=== PATIENT | female | born 1950 | race Caucasian/White ===

== ENCOUNTER 2016-12-20 10:58 | Inpatient (IN) | payer MEDICARE, OTHER ==
[~2016-12-20] VITALS: Ht 160 cm; Wt 78.5 kg
[~2016-12-20 10:58] MED LIST: ALBUTEROL2.5 MG/3 M INH; ASPIRIN EC81 MG PO; AYR NASAL SPRAY50 ML; BACTROBAN OINT22 GM TOP; BENTYL10 MG PO; CARDIZEM 60MG T60 MG PO; CARDIZEM60 MG PO; DALIRESP500 MCG PO; ISORDIL TAB 3030 MG PO; KLONOPIN TAB 00.5 MG PO; LEVAQUIN500 MG PO; LIPITOR TAB 2020 MG PO; LOPRESSOR 25 MG25 MG PO; MEDROL4 MG PO; NORCO 7.5-3251 EACH PO; PREDNISONE 10 M10 MG PO; PROZAC40 MG PO; SINGULAIR10 MG PO; SPIRIVA HANDIH18 MCG INH; SYMBICORT 80-10.2 GM INH; THEO-DUR 200 M200 MG PO; VENTOLIN HFA 66.7 GM INH; XARELTO15 MG PO
[2016-12-20 11:37] LABS: HEMOGLOBIN 11.4 gm/dl (12.3-15.3); RED BLOOD COUNT 4.11 M/UL (4.00-5.10); WHITE BLOOD COUNT 10.2 K/UL (4.5-11.0)
[2016-12-20 12:09] LABS: BUN/CREATININE RATIO 18 (0-10)
[2016-12-21 05:56] LABS: HEMOGLOBIN 10.8 gm/dl (12.3-15.3); RED BLOOD COUNT 3.84 M/UL (4.00-5.10)
[2016-12-21 05:57] LABS: WHITE BLOOD COUNT 6.4 K/UL (4.5-11.0)
[2016-12-21 06:21] LABS: BUN/CREATININE RATIO 24 (0-10)
[2016-12-21] MEDS ORDERED: IPRAT-ALBUT 0.5-3 ML INH (13:17)
[2016-12-24 05:29] LABS: HEMOGLOBIN 11.9 gm/dl (12.3-15.3)
[2016-12-24 05:31] LABS: RED BLOOD COUNT 4.25 M/UL (4.00-5.10); WHITE BLOOD COUNT 11.7 K/UL (4.5-11.0)
[2016-12-24 05:46] LABS: BUN/CREATININE RATIO 42 (0-10)
[2016-12-26 06:28] LABS: HEMOGLOBIN 11.4 gm/dl (12.3-15.3); RED BLOOD COUNT 4.13 M/UL (4.00-5.10); WHITE BLOOD COUNT 10.9 K/UL (4.5-11.0)
[2016-12-26 06:45] LABS: BUN/CREATININE RATIO 63 (0-10)
[2016-12-27 05:41] LABS: HEMOGLOBIN 11.1 gm/dl (12.3-15.3); RED BLOOD COUNT 4.02 M/UL (4.00-5.10); WHITE BLOOD COUNT 10.9 K/UL (4.5-11.0)
[2016-12-27 05:56] LABS: BUN/CREATININE RATIO 60 (0-10)
[2016-12-29 06:20] LABS: HEMOGLOBIN 11.4 gm/dl (12.3-15.3); RED BLOOD COUNT 4.13 M/UL (4.00-5.10); WHITE BLOOD COUNT 11.1 K/UL (4.5-11.0)
[2016-12-29 06:45] LABS: BUN/CREATININE RATIO 50 (0-10)
[2016-12-30 05:00] LABS: BUN/CREATININE RATIO 53 (0-10)
[2016-12-30] MEDS ORDERED: CARDIZEM 60MG T60 MG PO (17:36)
[2016-12-30] MEDS ORDERED: PROTONIX40 MG PO (17:37)
[2016-12-30] MEDS ORDERED: MEDROL DOSEPAK 24 MG PO (17:37)
[2016-12-30] MEDS ORDERED: CATAPRES 0.1MG0.1 MG PO (17:38)
[2016-12-30] MEDS ORDERED: KLONOPIN TAB 00.5 MG PO (17:38)
[2016-12-30] MEDS ORDERED: IMODIUM CAP 2 MG2 MG PO (18:28)
[2016-12-30] MEDS ORDERED: IMDUR ER TAB 3030 MG PO (18:38)
[2017-04-04] MEDS ORDERED: LASIX20 MG PO (03:42)
[2017-04-04] MEDS ORDERED: LISINOPRIL20 MG PO (03:45)
[2017-04-09] MEDS ORDERED: MEDROL DOSEPAK 24 MG PO (18:11)
[2017-04-20] MEDS ORDERED: SENOKOT-S TABL1 EACH PO (11:10)
[2017-04-20] MEDS ORDERED: CEFUROXIME500 MG PO (11:38)
== END 2016-12-30 20:00 | disposition home or self-care (01) | DRG 189 ==
LOC: ER1 10:58 → M/S 14:15 → ZEROF 14:15 → M/S 14:15
PROVIDERS: Emergency Medicine; Hospitalist; Internal Medicine Pulmonary Disease; ADMIT Internal Medicine
PROC: 5A09357 Assistance with Respiratory Ventilation, Less than 24 Consecutive Hours, Continuous Positive Airway Pressure (ICD-10-PCS; principal; 2016-12-27)
DX: J96.22 Acute and chronic respiratory failure with hypercapnia (principal); G93.41 Metabolic encephalopathy; J44.0 Chronic obstructive pulmonary disease with (acute) lower respiratory infection; I50.30 Unspecified diastolic (congestive) heart failure; K52.1 Toxic gastroenteritis and colitis; J44.1 Chronic obstructive pulmonary disease with (acute) exacerbation; J96.21 Acute and chronic respiratory failure with hypoxia; J20.9 Acute bronchitis, unspecified; I11.0 Hypertensive heart disease with heart failure; I25.10 Atherosclerotic heart disease of native coronary artery without angina pectoris; I48.0 Paroxysmal atrial fibrillation; E78.5 Hyperlipidemia, unspecified; D64.9 Anemia, unspecified; T36.3X5A Adverse effect of macrolides, initial encounter; K21.9 Gastro-esophageal reflux disease without esophagitis; G89.29 Other chronic pain; E66.9 Obesity, unspecified; F41.9 Anxiety disorder, unspecified; Z95.5 Presence of coronary angioplasty implant and graft; Z87.891 Personal history of nicotine dependence; Z77.22 Contact with and (suspected) exposure to environmental tobacco smoke (acute) (chronic); Z91.19 Patient's noncompliance with other medical treatment and regimen; Z68.30 Body mass index [BMI] 30.0-30.9, adult; Z79.01 Long term (current) use of anticoagulants; Z79.82 Long term (current) use of aspirin; Z99.81 Dependence on supplemental oxygen; Z79.52 Long term (current) use of systemic steroids; Z79.51 Long term (current) use of inhaled steroids; Z79.891 Long term (current) use of opiate analgesic; Z79.899 Other long term (current) drug therapy; Z90.49 Acquired absence of other specified parts of digestive tract; Z98.890 Other specified postprocedural states; Z82.49 Family history of ischemic heart disease and other diseases of the circulatory system
CPT/HCPCS: 36415; 36600; 71010; 71020; 80048; 80053; 81001; 82550; 82553; 82803; 83605; 83735; 83874; 83880; 84100; 84484; 85025; 85027; 87040; 87045; 87046; 89055; 93005; 94640; 94660; 94664; 96374; 96375; 97110; 97530; 99285; G0378; J0360; J0696; J2270; J2920; J2930; J7050; J7509

== ENCOUNTER → 2017-01-13 | Outpatient (CLI) | payer MEDICARE, OTHER ==
[~2017-01-13] MED LIST changes: +CATAPRES 0.1MG0.1 MG PO; +CEFUROXIME500 MG PO; +IMDUR ER TAB 3030 MG PO; +IMODIUM CAP 2 MG2 MG PO; +IPRAT-ALBUT 0.5-3 ML INH; +LASIX20 MG PO; +LISINOPRIL20 MG PO; +MEDROL DOSEPAK 24 MG PO; +PROTONIX40 MG PO; +SENOKOT-S TABL1 EACH PO
== END ==
LOC: HEART 5 14:16
DX: J44.9 Chronic obstructive pulmonary disease, unspecified (principal)
CPT/HCPCS: 94010

== ENCOUNTER → 2017-02-08 | Outpatient (CLI) | payer MEDICARE, OTHER | LOC: KOH-I 08:30 | DX: R07.81 Pleurodynia (principal); M25.522 Pain in left elbow; M19.022 Primary osteoarthritis, left elbow | CPT/HCPCS: 71020; 73200 ==

== ENCOUNTER 2020-12-16 04:28 | Inpatient (IN) | payer MEDICARE, OTHER ==
[~2020-12-16] VITALS: Ht 157.5 cm; Wt 83.9 kg
[~2020-12-16 04:28] MED LIST changes: +CEFUROXIME250 MG PO; +HYDRALAZINE HCL25 MG PO; -IPRAT-ALBUT 0.5-3 ML INH; +K-DUR TAB 10 M10 MEQ PO; +KEFLEX CAP 250250 MG PO; -LOPRESSOR 25 MG25 MG PO; +LORTAB 5-325 M1 EACH PO; +NITROGLYCERIN0.4 MG SL; +NORCO 5-325 TA1 EACH PO; +OMNICEF 300 MG300 MG PO; +PREDNISONE 50 M50 MG PO; +PREDNISONE10 MG PO; +TIKOSYN125 MCG PO; +ZITHROMAX500 MG PO
[2020-12-16 06:00] LABS: BUN/CREATININE RATIO 20 (0-10)
[2020-12-16 06:11] LABS: HEMOGLOBIN 11.2 gm/dl (12.3-15.3); RED BLOOD COUNT 4.02 M/UL (4.00-5.10); WHITE BLOOD COUNT 15.8 K/UL (4.5-11.0)
[2020-12-16] MEDS ORDERED: MEDROL DOSEPAK 24 MG PO (06:28)
[2020-12-16] MEDS ORDERED: VIBRAMYCIN100 MG PO (06:28)
[2020-12-16] MEDS ORDERED: HYDROCODON-ACE1 EAC2 PO (09:40)
[2020-12-16] MEDS ORDERED: DAILY VALUE1 EACH PO (09:41)
[2020-12-16] MEDS ORDERED: ASPIRIN EC81 MG PO (09:41)
[2020-12-16] MEDS ORDERED: PULMICORT1 MG/2 ML INH (09:43)
[2020-12-16] MEDS ORDERED: SYMBICORT 80-10.2 GM INH (09:46)
[2020-12-16] MEDS ORDERED: VENTOLIN HFA 66.7 GM INH (09:48)
[2020-12-16] MEDS ORDERED: MUCUS RELIEF400 MG PO (09:48)
[2020-12-16] MEDS ORDERED: BENTYL 10MG CAP10 MG PO (09:52)
[2020-12-16] MEDS ORDERED: IBUPROFEN400 MG PO (09:53)
[2020-12-16] MEDS ORDERED: IPRAT-ALBUT 0.5-3 ML INH (13:17)
[2020-12-16] MEDS ORDERED: KLONOPIN TAB 00.5 MG PO (16:08)
[2020-12-17 06:35] LABS: HEMOGLOBIN 11.6 gm/dl (12.3-15.3); RED BLOOD COUNT 4.19 M/UL (4.00-5.10); WHITE BLOOD COUNT 16.2 K/UL (4.5-11.0)
[2020-12-17 06:45] LABS: BUN/CREATININE RATIO 28 (0-10)
[2020-12-18 05:56] LABS: HEMOGLOBIN 11.3 gm/dl (12.3-15.3); RED BLOOD COUNT 4.07 M/UL (4.00-5.10); WHITE BLOOD COUNT 18.8 K/UL (4.5-11.0)
[2020-12-18 06:29] LABS: BUN/CREATININE RATIO 34 (0-10)
[2020-12-18] MEDS ORDERED: OMNICEF 300 MG300 MG PO (11:26)
[2020-12-18] MEDS ORDERED: MEDROL DOSEPAK 24 MG PO (11:26)
[2020-12-19] MEDS ORDERED: AMOX TR-K CLV1 EAC4 PO (20:01)
[2020-12-20] MEDS ORDERED: LEVOFLOXACIN750 MG PO (16:03)
[2020-12-20] MEDS ORDERED: OMNICEF 300 MG300 MG PO (16:09)
== END 2020-12-20 16:59 | disposition home or self-care (01) | DRG 190 ==
LOC: ER1 04:28 → M/S 08:27 → CDU 08:27 → M/S 08:27 → CDU 08:27 → M/S 19:07
PROVIDERS: Emergency Medicine; Physician Assistant; Physician Assistant Medical; ADMIT Internal Medicine
DX: J44.1 Chronic obstructive pulmonary disease with (acute) exacerbation (principal); J18.9 Pneumonia, unspecified organism; J96.11 Chronic respiratory failure with hypoxia; J98.11 Atelectasis; J96.12 Chronic respiratory failure with hypercapnia; I50.32 Chronic diastolic (congestive) heart failure; J44.0 Chronic obstructive pulmonary disease with (acute) lower respiratory infection; F41.9 Anxiety disorder, unspecified; I11.0 Hypertensive heart disease with heart failure; J44.9 Chronic obstructive pulmonary disease, unspecified; D72.829 Elevated white blood cell count, unspecified; Z20.822 Contact with and (suspected) exposure to COVID-19; R50.9 Fever, unspecified; R00.0 Tachycardia, unspecified; R73.9 Hyperglycemia, unspecified; I25.10 Atherosclerotic heart disease of native coronary artery without angina pectoris; I48.0 Paroxysmal atrial fibrillation; E78.5 Hyperlipidemia, unspecified; I27.20 Pulmonary hypertension, unspecified; Z87.891 Personal history of nicotine dependence; Z79.899 Other long term (current) drug therapy; Z79.01 Long term (current) use of anticoagulants; Z98.61 Coronary angioplasty status; Z79.82 Long term (current) use of aspirin; Z99.81 Dependence on supplemental oxygen
CPT/HCPCS: 0240U; 36415; 36600; 71045; 71046; 80048; 80053; 81001; 82550; 82553; 82803; 83605; 83690; 83735; 83880; 84484; 85025; 85027; 85379; 85610; 85730; 87040; 87086; 93005; 94640; 94660; 94664; 94760; 96374; 96375; 96376; 99285; G0378; J0696; J1940; J2405; J2550; J2930

== ENCOUNTER 2021-01-02 08:43 | Inpatient (IN) | payer OTHER ==
[~2021-01-02] VITALS: Ht 160 cm; Wt 84.8 kg
[~2021-01-02 08:43] MED LIST changes: +AMOX TR-K CLV1 EAC4 PO; +BENTYL 10MG CAP10 MG PO; +DAILY VALUE1 EACH PO; +HYDROCODON-ACE1 EAC2 PO; +IBUPROFEN400 MG PO; +IPRAT-ALBUT 0.5-3 ML INH; +LEVOFLOXACIN750 MG PO; +MUCUS RELIEF400 MG PO; +PULMICORT1 MG/2 ML INH; +VIBRAMYCIN100 MG PO
[2021-01-02] MEDS ORDERED: LOPRESSOR 50 MG50 MG PO (10:24)
[2021-01-02] MEDS ORDERED: SPIRIVA RESPIMAT4 GM INH (10:29)
[2021-01-02 12:22] LABS: HEMOGLOBIN 10.4 gm/dl (12.3-15.3); RED BLOOD COUNT 3.82 M/UL (4.00-5.10); WHITE BLOOD COUNT 9.2 K/UL (4.5-11.0)
[2021-01-02 12:55] LABS: BUN/CREATININE RATIO 14 (0-10)
[2021-01-02] MEDS ORDERED: XIIDRA 5% EYEBOTH (17:44)
[2021-01-02] MEDS ORDERED: TIKOSYN125 MCG PO (17:53)
[2021-01-03 03:48] LABS: HEMOGLOBIN 10.7 gm/dl (12.3-15.3); RED BLOOD COUNT 3.92 M/UL (4.00-5.10)
[2021-01-03 03:54] LABS: WHITE BLOOD COUNT 6.7 K/UL (4.5-11.0)
[2021-01-03 04:20] LABS: BUN/CREATININE RATIO 21 (0-10)
[2021-01-04 04:48] LABS: HEMOGLOBIN 10.3 gm/dl (12.3-15.3); RED BLOOD COUNT 3.76 M/UL (4.00-5.10)
[2021-01-04 05:26] LABS: BUN/CREATININE RATIO 24 (0-10)
[2021-01-05 02:49] LABS: HEMOGLOBIN 9.9 gm/dl (12.3-15.3); RED BLOOD COUNT 3.68 M/UL (4.00-5.10); WHITE BLOOD COUNT 12.3 K/UL (4.5-11.0)
[2021-01-05 03:35] LABS: BUN/CREATININE RATIO 24 (0-10)
[2021-01-06 03:30] LABS: HEMOGLOBIN 10.9 gm/dl (12.3-15.3); RED BLOOD COUNT 3.97 M/UL (4.00-5.10)
[2021-01-06 03:49] LABS: BUN/CREATININE RATIO 32 (0-10)
[2021-01-06] MEDS ORDERED: MEDROL DOSEPAK 24 MG PO (11:11)
[2021-01-06] MEDS ORDERED: DOXYCYCLINE HY100 MG PO (11:11)
[2021-01-06] MEDS ORDERED: AMLODIPINE BESYL5 MG PO (11:11)
[2021-01-07 05:19] LABS: BUN/CREATININE RATIO 26 (0-10)
[2021-01-07] MEDS ORDERED: PROTONIX 40 MG40 M1 PO (08:42)
[2021-01-07] MEDS ORDERED: DIAMOX 250 MG250 MG PO (08:50)
--- NOTE | 2021-01-07 10:03 | NUR ---
INSTRUCTED PATIENT ON STOPPING PULMICORT, NEW MED SCRIPTS GIVEN, FOLLOW UP APPOINTMENT SCHEDULED. PATIENT HAS HOSPICE IN [place]. NURSE MADE AWARE. LARS BYRD R.N.
--- NOTE | 2021-01-07 11:14 | NUR ---
notified [facility]. report given to Philip
== END 2021-01-07 13:18 | disposition home or self-care (01) | DRG 178 ==
LOC: ER1 08:43 → CDU 16:20 → M/S 16:20
PROVIDERS: Emergency Medicine; Internal Medicine; Physician Assistant; ADMIT Internal Medicine
DX: J15.6 Pneumonia due to other Gram-negative bacteria (principal); J44.1 Chronic obstructive pulmonary disease with (acute) exacerbation; J96.11 Chronic respiratory failure with hypoxia; I50.32 Chronic diastolic (congestive) heart failure; J96.12 Chronic respiratory failure with hypercapnia; E87.3 Alkalosis; J44.0 Chronic obstructive pulmonary disease with (acute) lower respiratory infection; J15.212 Pneumonia due to Methicillin resistant Staphylococcus aureus; I25.10 Atherosclerotic heart disease of native coronary artery without angina pectoris; E66.01 Morbid (severe) obesity due to excess calories; E78.5 Hyperlipidemia, unspecified; I27.20 Pulmonary hypertension, unspecified; I48.0 Paroxysmal atrial fibrillation; I11.0 Hypertensive heart disease with heart failure; Z20.822 Contact with and (suspected) exposure to COVID-19; R19.7 Diarrhea, unspecified; Z87.891 Personal history of nicotine dependence; Z82.49 Family history of ischemic heart disease and other diseases of the circulatory system; Z90.49 Acquired absence of other specified parts of digestive tract; Z98.890 Other specified postprocedural states; Z68.33 Body mass index [BMI] 33.0-33.9, adult; I25.2 Old myocardial infarction; Z95.5 Presence of coronary angioplasty implant and graft
CPT/HCPCS: 0240U; 36415; 36600; 71045; 71046; 80048; 80053; 80202; 82550; 82553; 82803; 83036; 83605; 83874; 83880; 84484; 85025; 86140; 87040; 93005; 94640; 94664; 94760; 96365; 96366; 96375; 97116-GP-CQ; 97161; 97530-GP-CQ; 99285; J0360; J0692; J2920; J2930; J3370; J7030; J7070

== ENCOUNTER 2021-07-07 19:36 | Inpatient (IN) | payer MEDICARE, OTHER ==
[~2021-07-07] VITALS: Ht 160 cm; Wt 71.7 kg
[~2021-07-07 19:36] MED LIST changes: +AMLODIPINE BESYL5 MG PO; +DIAMOX 250 MG250 MG PO; +DOXYCYCLINE HY100 MG PO; +LOPRESSOR 50 MG50 MG PO; +PROTONIX 40 MG40 M1 PO; +SPIRIVA RESPIMAT4 GM INH; +XIIDRA 5% EYEBOTH
[2021-07-07 20:09] LABS: RED BLOOD COUNT 4.37 M/UL (4.00-5.10); WHITE BLOOD COUNT 18.4 K/UL (4.5-11.0)
[2021-07-07 20:38] LABS: BUN/CREATININE RATIO 16 (0-10)
[2021-07-08] MEDS ORDERED: TIKOSYN125 MCG PO (00:38)
[2021-07-08] MEDS ORDERED: FLONASE 0.05% N16 GM (00:39)
[2021-07-08] MEDS ORDERED: HYDROCODON-ACE1 EAC2 PO (00:39)
[2021-07-08] MEDS ORDERED: SPIRIVA RESPIMAT4 GM INH (00:42)
[2021-07-08] MEDS ORDERED: ALBUTEROL2.5 MG/3 M INH (00:44)
[2021-07-08] MEDS ORDERED: FLUOXETINE HCL40 MG PO (00:46)
[2021-07-08] MEDS ORDERED: AMLODIPINE BES2.5 MG PO (00:47)
[2021-07-08] MEDS ORDERED: ISOSORBIDE MONO30 MG PO (00:47)
[2021-07-08] MEDS ORDERED: NYSTOP60 GM TP (00:48)
[2021-07-08] MEDS ORDERED: PEPTO-BISM262 MG/15 PO (00:50)
[2021-07-08 06:54] LABS: BUN/CREATININE RATIO 23 (0-10)
--- NOTE | 2021-07-09 08:26 | NUR ---
patient using external catheter.
[2021-07-10 08:06] LABS: BUN/CREATININE RATIO 15 (0-10)
--- NOTE | 2021-07-10 10:42 | NUR ---
DR. NINA AWARE OF PATIENT PASSING LARGE AMOUNTS OF BLOOD FROM RECTUM.
[2021-07-12 08:04] LABS: BUN/CREATININE RATIO 27 (0-10)
[2021-07-13 06:10] LABS: HEMOGLOBIN 11.3 gm/dl (12.3-15.3); RED BLOOD COUNT 4.25 M/UL (4.00-5.10)
[2021-07-13 06:29] LABS: BUN/CREATININE RATIO 24 (0-10)
--- NOTE | 2021-07-14 11:25 | NUR ---
PATIENT DESATS WITH ACTIVITY OR WHEN SITTING UP IN CHAIR. HAS BETTER O2 SATS WHEN LYING IN BED. WILL CONTINUE TO MONITOR.
[2021-07-14 12:16] LABS: HEMOGLOBIN 11.1 gm/dl (12.3-15.3); RED BLOOD COUNT 4.1 M/UL (4.00-5.10); WHITE BLOOD COUNT 13.5 K/UL (4.5-11.0)
[2021-07-14 12:41] LABS: BUN/CREATININE RATIO 28 (0-10)
[2021-07-15 09:47] LABS: BUN/CREATININE RATIO 31 (0-10)
[2021-07-15 10:25] LABS: HEMOGLOBIN 11.1 gm/dl (12.3-15.3); RED BLOOD COUNT 4.25 M/UL (4.00-5.10); WHITE BLOOD COUNT 14.3 K/UL (4.5-11.0)
[2021-07-16 08:05] LABS: RED BLOOD COUNT 4.18 M/UL (4.00-5.10); WHITE BLOOD COUNT 16.3 K/UL (4.5-11.0)
[2021-07-16 08:55] LABS: BUN/CREATININE RATIO 37 (0-10)
[2021-07-17 04:29] LABS: HEMOGLOBIN 11.3 gm/dl (12.3-15.3); RED BLOOD COUNT 4.2 M/UL (4.00-5.10); WHITE BLOOD COUNT 13.1 K/UL (4.5-11.0)
[2021-07-17 04:57] LABS: BUN/CREATININE RATIO 27 (0-10)
[2021-07-17] MEDS ORDERED: DOXYCYCLINE HY100 M2 PO (14:01)
[2021-07-17] MEDS ORDERED: MEDROL DOSEPAK 24 MG PO (14:01)
[2021-07-17] MEDS ORDERED: AMLODIPINE BESYL5 MG PO (14:01)
[2021-07-17] MEDS ORDERED: LISINOPRIL10 MG PO (14:01)
[2021-07-17] MEDS ORDERED: DIAMOX 250 MG250 MG PO (14:05)
== END 2021-07-17 17:25 | disposition home health service (06) | DRG 871 ==
LOC: ER1 19:36 → CDU 22:14 → M/S 22:14
PROVIDERS: Internal Medicine; Student in an Organized Health Care Education/Training Program; ADMIT Internal Medicine
PROC: 5A09357 Assistance with Respiratory Ventilation, Less than 24 Consecutive Hours, Continuous Positive Airway Pressure (ICD-10-PCS; principal; 2021-07-09)
PROC: 5A0935A Assistance with Respiratory Ventilation, Less than 24 Consecutive Hours, High Flow/Velocity Cannula (ICD-10-PCS; 2021-07-10)
DX: A41.9 Sepsis, unspecified organism (principal); J18.9 Pneumonia, unspecified organism; Z20.822 Contact with and (suspected) exposure to COVID-19; Z66 Do not resuscitate; J96.21 Acute and chronic respiratory failure with hypoxia; J44.1 Chronic obstructive pulmonary disease with (acute) exacerbation; I50.32 Chronic diastolic (congestive) heart failure; J44.0 Chronic obstructive pulmonary disease with (acute) lower respiratory infection; E87.1 Hypo-osmolality and hyponatremia; I27.20 Pulmonary hypertension, unspecified; I25.10 Atherosclerotic heart disease of native coronary artery without angina pectoris; R65.20 Severe sepsis without septic shock; I11.0 Hypertensive heart disease with heart failure; E78.5 Hyperlipidemia, unspecified; G89.29 Other chronic pain; D63.1 Anemia in chronic kidney disease; E87.6 Hypokalemia; E66.9 Obesity, unspecified; E86.0 Dehydration; I48.0 Paroxysmal atrial fibrillation; F41.9 Anxiety disorder, unspecified; F32.9 Major depressive disorder, single episode, unspecified; F17.210 Nicotine dependence, cigarettes, uncomplicated; Z79.01 Long term (current) use of anticoagulants; Z95.5 Presence of coronary angioplasty implant and graft; Z51.5 Encounter for palliative care; Z87.01 Personal history of pneumonia (recurrent); Z82.49 Family history of ischemic heart disease and other diseases of the circulatory system; Z90.49 Acquired absence of other specified parts of digestive tract; Z79.82 Long term (current) use of aspirin; Z99.81 Dependence on supplemental oxygen; I25.2 Old myocardial infarction; Z68.27 Body mass index [BMI] 27.0-27.9, adult
CPT/HCPCS: 36415; 36600; 71045; 80048; 80053; 82550; 82553; 82803; 83605; 83735; 83874; 83880; 84075; 84132; 84484; 85025; 86140; 87040; 93005; 94640; 94660; 94664; 94760; 96374; 97161; 97530; 97530-GP-CQ; 99285; J0456; J0692; J0696; J1120; J1160; J1940; J2920; J2930; J7050; Q9967; U0002

== ENCOUNTER 2022-01-27 14:31 | Emergency (ER) | payer MEDICARE, OTHER ==
[~2022-01-27 14:31] MED LIST changes: +AMLODIPINE BES2.5 MG PO; +DOXYCYCLINE HY100 M2 PO; +FLONASE 0.05% N16 GM; +FLUOXETINE HCL40 MG PO; +ISOSORBIDE MONO30 MG PO; +LISINOPRIL10 MG PO; +NYSTOP60 GM TP; +PEPTO-BISM262 MG/15 PO
[2022-01-27 16:15] LABS: HEMOGLOBIN 9.5 gm/dl (12.3-15.3); RED BLOOD COUNT 3.63 M/UL (4.00-5.10); WHITE BLOOD COUNT 7.7 K/UL (4.5-11.0)
[2022-01-27 16:48] LABS: BUN/CREATININE RATIO 35 (0-10)
[2022-01-27] MEDS ORDERED: CEPHALEXIN500 M1 PO (17:14)
[2022-01-27] MEDS ORDERED: ZOFRAN 4 MG TAB4 MG PO (17:15)
== END 2022-01-27 17:45 | disposition home or self-care (01) ==
LOC: ER1 14:31
PROVIDERS: Emergency Medicine
DX: N39.0 Urinary tract infection, site not specified (principal); E86.0 Dehydration; I12.9 Hypertensive chronic kidney disease with stage 1 through stage 4 chronic kidney disease, or unspecified chronic kidney disease; Z20.822 Contact with and (suspected) exposure to COVID-19; I50.9 Heart failure, unspecified; J44.9 Chronic obstructive pulmonary disease, unspecified; R62.7 Adult failure to thrive
CPT/HCPCS: 70450; 71045; 80053; 81001; 84439; 84443; 84484; 85025; 86140; 93005; 94664; 99285; U0002

== ENCOUNTER 2022-02-01 09:20 | Inpatient (IN) | payer MEDICARE, OTHER ==
[~2022-02-01] VITALS: Ht 154.9 cm; Wt 66.2 kg
[~2022-02-01 09:20] MED LIST changes: +ALBUTEROL2.5 MG/3 M NEB; +CEPHALEXIN500 M1 PO; -IPRAT-ALBUT 0.5-3 ML INH; -LIPITOR TAB 2020 MG PO; +LIPITOR40 MG PO; +ZOFRAN 4 MG TAB4 MG PO
[2022-02-01 09:46] LABS: HEMOGLOBIN 10.6 gm/dl (12.3-15.3); RED BLOOD COUNT 4.06 M/UL (4.00-5.10); WHITE BLOOD COUNT 17.4 K/UL (4.5-11.0)
[2022-02-01 10:12] LABS: BUN/CREATININE RATIO 29 (0-10)
[2022-02-01] MEDS ORDERED: IPRAT-ALBUT 0.5-3 ML NEB (13:17)
[2022-02-01] MEDS ORDERED: FUROSEMIDE20 MG PO (15:00)
[2022-02-01] MEDS ORDERED: AMLODIPINE BESYL5 MG PO (15:09)
[2022-02-02 08:35] LABS: HEMOGLOBIN 9.4 gm/dl (12.3-15.3)
[2022-02-02 08:36] LABS: RED BLOOD COUNT 3.56 M/UL (4.00-5.10); WHITE BLOOD COUNT 26.7 K/UL (4.5-11.0)
[2022-02-02 09:04] LABS: BUN/CREATININE RATIO 45 (0-10)
[2022-02-03 03:26] LABS: HEMOGLOBIN 9.3 gm/dl (12.3-15.3); RED BLOOD COUNT 3.57 M/UL (4.00-5.10)
[2022-02-03 03:29] LABS: WHITE BLOOD COUNT 17.6 K/UL (4.5-11.0)
[2022-02-03 05:02] LABS: BUN/CREATININE RATIO 39 (0-10)
--- NOTE | 2022-02-03 12:21 | NUR ---
PT NOTED TO BE IN AFIB RVR AT THE RATE OF 147. BP 142/51. PTS BP DID NOT TOLERATE CARDIZEM DRIP LAST NIGHT PER RN. NOTIFIED DR ARMENDARIZ ORDERS TO CONSULT CARDIOLOGY OBTAINED.
--- NOTE | 2022-02-03 12:25 | NUR ---
CALLED DR MARIA'S OFFICE AND LEFT MESSAGE NOTIFYING THEM OF CONSULT.
--- NOTE | 2022-02-03 12:48 | NUR ---
PT HAD RUN OF ALICIA. JENN JEWELL WITH CARDIO AT BEDSIDE TO SEE PT.
[2022-02-04 02:13] LABS: HEMOGLOBIN 8.8 gm/dl (12.3-15.3); RED BLOOD COUNT 3.37 M/UL (4.00-5.10)
[2022-02-04 02:20] LABS: WHITE BLOOD COUNT 12.9 K/UL (4.5-11.0)
[2022-02-04 04:00] LABS: BUN/CREATININE RATIO 31 (0-10)
[2022-02-04] MEDS ORDERED: OMNICEF 300 MG300 MG PO (14:38)
[2022-02-04] MEDS ORDERED: DIAMOX 250 MG250 MG PO ×2 (14:38→14:40)
== END 2022-02-04 15:34 | disposition home health service (06) | DRG 871 ==
LOC: ER1 09:20 → CDU 12:01 → PROG CARE 12:01
PROVIDERS: Emergency Medicine; Internal Medicine; ADMIT Internal Medicine
PROC: 3E03329 Introduction of Other Anti-infective into Peripheral Vein, Percutaneous Approach (ICD-10-PCS; principal; 2022-02-01)
PROC: 5A09357 Assistance with Respiratory Ventilation, Less than 24 Consecutive Hours, Continuous Positive Airway Pressure (ICD-10-PCS; 2022-02-01)
PROC: 5A0935A Assistance with Respiratory Ventilation, Less than 24 Consecutive Hours, High Flow/Velocity Cannula (ICD-10-PCS; 2022-02-01)
PROC: 5A09357 Assistance with Respiratory Ventilation, Less than 24 Consecutive Hours, Continuous Positive Airway Pressure (ICD-10-PCS; 2022-02-02)
DX: A41.9 Sepsis, unspecified organism (principal); J96.21 Acute and chronic respiratory failure with hypoxia; J18.9 Pneumonia, unspecified organism; G93.41 Metabolic encephalopathy; J96.22 Acute and chronic respiratory failure with hypercapnia; J44.0 Chronic obstructive pulmonary disease with (acute) lower respiratory infection; J44.1 Chronic obstructive pulmonary disease with (acute) exacerbation; I50.32 Chronic diastolic (congestive) heart failure; N39.0 Urinary tract infection, site not specified; I11.0 Hypertensive heart disease with heart failure; F32.A Depression, unspecified; F41.9 Anxiety disorder, unspecified; M19.91 Primary osteoarthritis, unspecified site; H40.9 Unspecified glaucoma; Z20.822 Contact with and (suspected) exposure to COVID-19; E78.5 Hyperlipidemia, unspecified; I27.20 Pulmonary hypertension, unspecified; M54.50 Low back pain, unspecified; G89.29 Other chronic pain; R65.20 Severe sepsis without septic shock; I48.0 Paroxysmal atrial fibrillation; I25.10 Atherosclerotic heart disease of native coronary artery without angina pectoris; I25.2 Old myocardial infarction; Z87.891 Personal history of nicotine dependence; Z95.5 Presence of coronary angioplasty implant and graft; Z98.41 Cataract extraction status, right eye; Z98.42 Cataract extraction status, left eye; Z90.49 Acquired absence of other specified parts of digestive tract; Z79.82 Long term (current) use of aspirin; Z79.899 Other long term (current) drug therapy; Z88.8 Allergy status to other drugs, medicaments and biological substances; Z88.0 Allergy status to penicillin; Z87.440 Personal history of urinary (tract) infections; Z79.01 Long term (current) use of anticoagulants
CPT/HCPCS: 0240U; 36415; 36600; 71045; 80053; 81001; 82550; 82553; 82803; 83605; 83735; 83880; 84484; 85025; 85027; 87040; 87086; 93005; 94640; 94660; 94664; 94760; 96374; 96375; 99285; J0456; J0696; J1120; J1940; J2060; J2185; J2930; J3370; J3475; J7030; J7070

== ENCOUNTER → 2022-03-10 | Outpatient (CLI) | payer MEDICARE, OTHER ==
[~2022-03-10] MED LIST changes: +FUROSEMIDE20 MG PO; +IPRAT-ALBUT 0.5-3 ML NEB
== END ==
LOC: HEART 5 13:46
DX: I95.9 Hypotension, unspecified (principal)

== ENCOUNTER 2022-04-29 17:57 | Emergency (ER) | payer MEDICARE, OTHER ==
[2022-04-29 19:03] LABS: HEMOGLOBIN 9.2 gm/dl (12.3-15.3); RED BLOOD COUNT 3.52 M/UL (4.00-5.10); WHITE BLOOD COUNT 10.9 K/UL (4.5-11.0)
[2022-04-29 19:58] LABS: BUN/CREATININE RATIO 23 (0-10)
[2022-04-29] MEDS ORDERED: PREDNISONE 10 M10 MG PO (21:09)
== END 2022-04-29 21:50 | disposition home or self-care (01) ==
LOC: ER1 17:57
PROVIDERS: Physician Assistant
DX: S70.12XA Contusion of left thigh, initial encounter (principal); S51.012A Laceration without foreign body of left elbow, initial encounter; R07.89 Other chest pain; J44.9 Chronic obstructive pulmonary disease, unspecified; W19.XXXA Unspecified fall, initial encounter; Y92.009 Unspecified place in unspecified non-institutional (private) residence as the place of occurrence of the external cause
CPT/HCPCS: 70450; 71045; 72125; 72192; 73080; 73502; 73552; 80053; 82550; 82553; 84484; 85025; 94664; 99284

== ENCOUNTER 2022-04-30 13:53 | Inpatient (IN) | payer MEDICARE, OTHER ==
[~2022-04-30] VITALS: Ht 160 cm; Wt 64.1 kg
[2022-04-30 18:39] LABS: HEMOGLOBIN 8.4 gm/dl (12.3-15.3); RED BLOOD COUNT 3.24 M/UL (4.00-5.10); WHITE BLOOD COUNT 8.3 K/UL (4.5-11.0)
[2022-05-01 07:12] LABS: HEMOGLOBIN 7.4 gm/dl (12.3-15.3); RED BLOOD COUNT 2.92 M/UL (4.00-5.10); WHITE BLOOD COUNT 7.7 K/UL (4.5-11.0)
[2022-05-01 07:25] LABS: BUN/CREATININE RATIO 28 (0-10)
[2022-05-02 08:21] LABS: HEMOGLOBIN 7.4 gm/dl (12.3-15.3); RED BLOOD COUNT 2.86 M/UL (4.00-5.10)
[2022-05-02 08:41] LABS: BUN/CREATININE RATIO 34 (0-10)
[2022-05-03 06:13] LABS: HEMOGLOBIN 9.6 gm/dl (12.3-15.3)
[2022-05-03 06:22] LABS: RED BLOOD COUNT 3.66 M/UL (4.00-5.10)
[2022-05-03 06:33] LABS: BUN/CREATININE RATIO 48 (0-10)
[2022-05-04 03:38] LABS: HEMOGLOBIN 8.4 gm/dl (12.3-15.3)
[2022-05-04 04:02] LABS: RED BLOOD COUNT 3.17 M/UL (4.00-5.10)
[2022-05-04 04:27] LABS: BUN/CREATININE RATIO 56 (0-10)
[2022-05-05 03:01] LABS: HEMOGLOBIN 8.4 gm/dl (12.3-15.3); RED BLOOD COUNT 3.17 M/UL (4.00-5.10); WHITE BLOOD COUNT 8.8 K/UL (4.5-11.0)
[2022-05-06 03:51] LABS: RED BLOOD COUNT 3.1 M/UL (4.00-5.10); WHITE BLOOD COUNT 7.8 K/UL (4.5-11.0)
[2022-05-06 04:24] LABS: BUN/CREATININE RATIO 48 (0-10)
[2022-05-06 16:11] LABS: ORGANISM ID Not indicated. (.); SPECIMEN SOURCE Urine (.); STREPTOCOCCUS PNEUMONIAE AG Negative (Negative)
[2022-05-08 02:28] LABS: HEMOGLOBIN 8.5 gm/dl (12.3-15.3); RED BLOOD COUNT 3.2 M/UL (4.00-5.10)
[2022-05-08 02:29] LABS: WHITE BLOOD COUNT 9.9 K/UL (4.5-11.0)
[2022-05-08 02:54] LABS: BUN/CREATININE RATIO 57 (0-10)
[2022-05-08] MEDS ORDERED: CEFUROXIME500 MG PO (10:19)
[2022-05-08] MEDS ORDERED: FERROUS SULFAT325 M2 PO (10:19)
--- NOTE | 2022-05-08 11:50 | NUR ---
ATTEMPTED TO CALL PATIENT'S DAUGHTER FOR PICKUP AT DISCHARGE WITH NO SUCCESS. RN LEFT CALL BACK NUMBER ON VOICEMAIL.
--- NOTE | 2022-05-08 14:50 | NUR ---
RN CALLED [facility] AND NOTIFIED THEM OF PATIENT DISCHARGE.TOOLING SUPERVISOR NURSE TO CALL BACK FOR PATIENT DISCHARGE INSTRUCTION. DAUGHTER MADE AWARE.
--- NOTE | 2022-05-08 14:58 | NUR ---
RN CALLED REPORT TO EDMUND WITH [facility] AND FAXED DISCHARGE PAPERWORK TO [facility].
== END 2022-05-08 15:06 | disposition home health service (06) | DRG 480 ==
LOC: ER1 13:53 → CDU 17:42 → M/S 17:42
PROVIDERS: Internal Medicine; Orthopaedic Surgery; Physician Assistant Medical; ADMIT Internal Medicine
PROC: 0QS706Z Reposition Left Upper Femur with Intramedullary Internal Fixation Device, Open Approach (ICD-10-PCS; 2022-05-02)
PROC: 5A09357 Assistance with Respiratory Ventilation, Less than 24 Consecutive Hours, Continuous Positive Airway Pressure (ICD-10-PCS; 2022-05-02)
PROC: 30233N1 Transfusion of Nonautologous Red Blood Cells into Peripheral Vein, Percutaneous Approach (ICD-10-PCS; principal; 2022-05-02 13:57)
PROC: 5A09357 Assistance with Respiratory Ventilation, Less than 24 Consecutive Hours, Continuous Positive Airway Pressure (ICD-10-PCS; 2022-05-03)
PROC: 5A09357 Assistance with Respiratory Ventilation, Less than 24 Consecutive Hours, Continuous Positive Airway Pressure (ICD-10-PCS; 2022-05-04)
PROC: 5A09357 Assistance with Respiratory Ventilation, Less than 24 Consecutive Hours, Continuous Positive Airway Pressure (ICD-10-PCS; 2022-05-05)
PROC: 5A09357 Assistance with Respiratory Ventilation, Less than 24 Consecutive Hours, Continuous Positive Airway Pressure (ICD-10-PCS; 2022-05-06)
PROC: 5A09357 Assistance with Respiratory Ventilation, Less than 24 Consecutive Hours, Continuous Positive Airway Pressure (ICD-10-PCS; 2022-05-08)
DX: S72.145A Nondisplaced intertrochanteric fracture of left femur, initial encounter for closed fracture (principal); J18.9 Pneumonia, unspecified organism; I50.32 Chronic diastolic (congestive) heart failure; J96.12 Chronic respiratory failure with hypercapnia; J96.11 Chronic respiratory failure with hypoxia; J98.11 Atelectasis; J44.1 Chronic obstructive pulmonary disease with (acute) exacerbation; I48.92 Unspecified atrial flutter; J44.0 Chronic obstructive pulmonary disease with (acute) lower respiratory infection; S72.125A Nondisplaced fracture of lesser trochanter of left femur, initial encounter for closed fracture; S72.115A Nondisplaced fracture of greater trochanter of left femur, initial encounter for closed fracture; I25.10 Atherosclerotic heart disease of native coronary artery without angina pectoris; Z82.49 Family history of ischemic heart disease and other diseases of the circulatory system; E78.5 Hyperlipidemia, unspecified; W01.0XXA Fall on same level from slipping, tripping and stumbling without subsequent striking against object, initial encounter; Z88.0 Allergy status to penicillin; I11.0 Hypertensive heart disease with heart failure; I27.20 Pulmonary hypertension, unspecified; Z79.899 Other long term (current) drug therapy; Z99.81 Dependence on supplemental oxygen; Z90.49 Acquired absence of other specified parts of digestive tract; Z98.890 Other specified postprocedural states; Z95.5 Presence of coronary angioplasty implant and graft; Z87.891 Personal history of nicotine dependence; D50.9 Iron deficiency anemia, unspecified
CPT/HCPCS: 36415; 36430; 36600; 70450; 71045; 71046; 72125; 72192; 73080; 73502; 73552; 73721; 76000; 80048; 80053; 81001; 82550; 82553; 82728; 82803; 83540; 83550; 83735; 84484; 85018; 85025; 85027; 86850; 86900; 86901; 86920; 87040; 87086; 87278; 87899; 94640; 94660; 94664; 94760; 96374; 97110; 97110-GP-CQ; 97162; 97165; 97530; 97530-GP-CQ; 99284; 99285; C1713; J0171; J0690; J0696; J1100; J1170; J1335; J1756; J2270; J2405; J2795; J2920; P9016